=== PATIENT | female | born 1975 | race Caucasian/White ===

== ENCOUNTER 2017-03-07 10:07 | Emergency (ER) | payer SELFPAY ==
[2017-03-07] MEDS ORDERED: NITROSTAT SL ONE (10:48)
--- NOTE | 2017-03-07 11:22 | Emergency Department Report ---
ED Chest Pain HPI - General Chief Complaint: Chest Pain Stated Complaint: CHEST PAIN Time Seen by Provider: 03/07/17 11:21 Source: patient, family Mode of arrival: Ambulatory Limitations: Language Barrier - History of Present Illness Initial Comments: Patient is a 42 referred with his anxiety presenting to the ED with acute chest pressure and paresthesias of her head and face. Patient reports she was just sitting at home when all her symptoms began. Currently patient reports the chest pressure has subsided but she still has paresthesias over her head and face. Upon EMS arrival patient was given 324 mg of aspirin and sublingual nitroglycerin. Patient reports a sublingual nitroglycerin helped with her chest pain. No prior history of cardiac disease or stress test. Otherwise no fevers, chills, headache, dizziness, nausea, vomiting, vision changes, paralysis , weakness, shortness of breath, abdominal pain, difficulty walking, travel, or sick contacts. - Related Data Home Medications Medication Instructions Recorded Confirmed Last Taken No Known Home Medications [No 03/07/17 03/07/17 Unknown Reported Home Medications] Allergies Allergy/AdvReac Type Severity Reaction Status Date / Time No Known Allergies Allergy Unverified 03/07/17 10:35 Heart Score - HEART Score History: Slightly suspicious EKG: Normal Age: < 45 Risk factors: No known risk factors Troponin: < normal limit HEART Score: 0 ED Review of Systems ROS: Stated complaint: CHEST PAIN Other details as noted in HPI Comment: All other systems reviewed and negative ED Past Medical Hx - Past Medical History Previous Medical History?: Yes Additional medical history: Anxiety - Surgical History Past Surgical History?: No - Social History Smoking Status: Never Smoker Substance Use Type: None - Medications Home Medications: Home Medications Medication Instructions Recorded Confirmed Last Taken Type No Known Home Medications [No 03/07/17 03/07/17 Unknown History Reported Home Medications] ED Physical Exam - General Limitations: No Limitations General appearance: alert, in no apparent distress - Head Head exam: Present: atraumatic, normocephalic - Eye Eye exam: Present: normal appearance, PERRL, EOMI. Absent: conjunctival injection, nystagmus Pupils: Present: normal accommodation. Absent: unequal, miosis - ENT ENT exam: Present: normal exam, mucous membranes moist - Neck Neck exam: Present: normal inspection, full ROM. Absent: tenderness, meningismus, lymphadenopathy - Respiratory Respiratory exam: Present: normal lung sounds bilaterally. Absent: respiratory distress, wheezes, rales, rhonchi, stridor - Cardiovascular Cardiovascular Exam: Present: regular rate, normal rhythm. Absent: systolic murmur, diastolic murmur, rubs, gallop - GI/Abdominal GI/Abdominal exam: Present: soft, normal bowel sounds. Absent: distended, tenderness, rebound, rigid - Extremities Exam Extremities exam: Present: normal inspection - Back Exam Back exam: Present: normal inspection - Neurological Exam Neurological exam: Present: alert, oriented X3, CN II-XII intact, normal gait, reflexes normal. Absent: abnormal gait, motor sensory deficit - Psychiatric Psychiatric exam: Present: normal affect, normal mood, anxious - Skin Skin exam: Present: warm, dry, intact, normal color. Absent: rash ED Course Vital Signs 03/07/17 03/07/17 03/07/17 10:18 10:24 10:30 Temperature Pulse Rate Respiratory Rate Blood Pressure 118/72 118/72 121/69 O2 Sat by Pulse 100 100 Oximetry 03/07/17 03/07/17 03/07/17 10:35 10:40 10:50 Temperature 98.3 F Pulse Rate 78 82 Respiratory 20 28 H Rate Blood Pressure 118/74 121/69 109/64 O2 Sat by Pulse 100 100 100 Oximetry 03/07/17 03/07/17 03/07/17 11:00 11:10 11:20 Temperature Pulse Rate 75 79 68 Respiratory 23 23 19 Rate Blood Pressure 111/70 111/70 119/72 O2 Sat by Pulse 100 100 Oximetry 03/07/17 03/07/17 03/07/17 11:30 11:37 11:40 Temperature Pulse Rate 59 L 65 Respiratory 31 H 20 21 Rate Blood Pressure 118/71 118/71 O2 Sat by Pulse 100 100 100 Oximetry 03/07/17 03/07/17 03/07/17 11:50 12:00 12:10 Temperature Pulse Rate 59 L 59 L 56 L Respiratory 26 H 27 H 15 Rate Blood Pressure 113/67 116/64 116/64 O2 Sat by Pulse 100 100 100 Oximetry 03/07/17 03/07/17 03/07/17 12:20 12:30 12:40 Temperature Pulse Rate 64 66 59 L Respiratory 25 H 13 13 Rate Blood Pressure 120/68 117/65 117/65 O2 Sat by Pulse 100 98 98 Oximetry 03/07/17 03/07/17 13:28 13:30 Temperature Pulse Rate 58 L 66 Respiratory 20 17 Rate Blood Pressure 105/66 104/67 O2 Sat by Pulse 100 99 Oximetry - Reevaluation(s) Reevaluation #1: 03/07/17 12:46 Pt re-evaluated, patient reports significant improvement, but still feels numbness along the back of her head and around her tongue Reevaluation #2: 03/07/17 14:55 Pt re-evaluated, patient reports significant improvement. Pt instructed to follow up with PMD this week. YULIANA score - Yuliana Score Age > 65: (0) No Aspirin use within the Past 7 Days: (0) No 3 or more CAD Risk Factors: (0) No 2 or more Angina events in past 24 hrs: (0) No Known CAD with more than 50% Stenosis: (0) No Elevated Cardiac Markers: (0) No ST Deviation Greater than 0.5mm: (0) No YULIANA Score: 0 ED Medical Decision Making - Lab Data Result diagrams: 03/07/17 11:04 03/07/17 11:04 - EKG Data -: EKG Interpreted by Me - EKG Data 03/07/17 11:22 EKG 10:28 Sinus rhythm at 78 bpm, QTC 497 ms, QT is less than half the R to R interval, PVCs, normal axis, no LVH, no ST changes, no STEMI 03/07/17 14:53 EKG 14:40 Sinus Bradycardia at 55 bpm, normal axis, no LVH, PVCs have resolved, no ST changes, no STEMI - Radiology Data CT head: No acute intracranial abnormalities - Medical Decision Making Results discussed with patient and her family at bedside. Given her sx and current clinical status, likely related to her anxiety. Critical care attestation.: If time is entered above; I have spent that time in minutes in the direct care of this critically ill patient, excluding procedure time. ED Disposition Clinical Impression: Chest wall pain, Headache, Paresthesia Disposition: DC-01 TO HOME OR SELFCARE Is pt being admited?: No Condition: Stable Instructions: Chest Pain (ED), Paresthesia (ED), Acute Headache (ED) Additional Instructions: PONGA ANAHY GABRIELLE CON CHERRY DOCTOR PRIMARIO ESTA SEMANA Referrals: PRIMARY CARE, [Primary Care Provider] - 3-5 Days Print Language: UKRAINIAN
[2017-03-07] MEDS ORDERED: XANAX PO ONE (11:28)
[2017-03-07 11:39] LABS: Anion Gap 23 mmol/L; Blood Urea Nitrogen 14 mg/dL (7-17); Calcium 8.6 mg/dL (8.4-10.2); Carbon Dioxide 17 mmol/L (22-30); Chloride 101.7 mmol/L (98-107); Glucose 107 mg/dL (65-100); Potassium 3.3 mmol/L (3.6-5.0); Sodium 138 mmol/L (137-145)
--- NOTE | 2017-03-07 11:55 | XRay Report ---
ROUTINE CHEST, TWO VIEWS: HISTORY: chest pain. The trachea, heart, mediastinal contour, lung stone and bony thorax are unremarkable. IMPRESSION: Unremarkable chest x-ray.
[2017-03-07 11:59] LABS: Basophils % (Auto) 1.3 % (0.0-1.8); Eosinophils % (Auto) 2.2 % (0.0-4.3); Hematocrit 35.3 % (30.3-42.9); Hemoglobin 11.8 gm/dl (10.1-14.3); Mean Corpuscular HGB Conc 34 % (30-34); Mean Corpuscular Hemoglobin 29 pg (28-32); Mean Corpuscular Volume 86 fl (79-97); Platelet Count 212 K/mm3 (140-440); Red Blood Count 4.09 M/mm3 (3.65-5.03); Red Cell Distribution Width 13.6 % (13.2-15.2); White Blood Count 7.4 K/mm3 (4.5-11.0)
[2017-03-07] MEDS ORDERED: NACL 0.9% 1000 ML 1,000 ML IV ONE (12:46)
[2017-03-07] MEDS ORDERED: K-DUR PO ONE (12:46)
--- NOTE | 2017-03-07 13:13 | Cat Scan Report ---
CT HEAD WITHOUT CONTRAST: HISTORY: CVA. Serial contiguous axial images were obtained through the cranium. Intravenous contrast material was not administered. The ventricles are normal in size and appearance. There is no mass effect or midline shift. No areas of abnormally increased or decreased attenuation are seen. No mass lesion is seen. The mastoid air cells and visualized portions of the sinuses are normal. IMPRESSION: Cranial CT scan within normal limits.
[2017-03-07] MEDS ORDERED: MOTRIN PO ONE (13:59)
[2017-03-07 16:35] VITALS: BP 102/63
== END 2017-03-07 16:00 | disposition home or self-care (01) ==
LOC: ED 10:07
DX: R07.89 Other chest pain (principal); R51 Headache; R20.0 Anesthesia of skin
CPT/HCPCS: 36415; 70450; 71020; 80048; 82150; 83690; 83735; 84443; 84484; 85025; 93005; 93010; 96360; 99285; J7030

== ENCOUNTER 2017-03-24 02:28 | Inpatient (IN) | payer SELFPAY ==
[2017-03-24 03:43] LABS: Basophils % (Auto) 1.3 % (0.0-1.8); Hematocrit 36.9 % (30.3-42.9); Hemoglobin 12.3 gm/dl (10.1-14.3); Mean Corpuscular HGB Conc 33 % (30-34); Mean Corpuscular Hemoglobin 29 pg (28-32); Mean Corpuscular Volume 87 fl (79-97); Platelet Count 240 K/mm3 (140-440); Red Blood Count 4.24 M/mm3 (3.65-5.03); Red Cell Distribution Width 13.7 % (13.2-15.2); White Blood Count 7.4 K/mm3 (4.5-11.0)
[2017-03-24 03:55] LABS: Anion Gap 19 mmol/L; Blood Urea Nitrogen 13 mg/dL (7-17); Calcium 9.4 mg/dL (8.4-10.2); Carbon Dioxide 21 mmol/L (22-30); Chloride 98.5 mmol/L (98-107); Glucose 103 mg/dL (65-100); Potassium 3.5 mmol/L (3.6-5.0); Sodium 135 mmol/L (137-145)
[2017-03-24] MEDS ORDERED: NACL 0.9% 1000 ML 1,000 ML IV ONE (06:14)
--- NOTE | 2017-03-24 07:41 | Emergency Department Report ---
ED General Adult HPI - General Chief complaint: Chest Pain Stated complaint: HEAD/NECK SHOULDER PAIN Time Seen by Provider: 03/24/17 07:04 Source: patient, family Mode of arrival: Ambulatory Limitations: Language Barrier - History of Present Illness Initial comments: The patient had an episode resulting in 911 actuation. I will obtain the history in [place] and he remains somewhat confusing. It appears that the patient's pain perhaps started in the left occipital area of her head. It started radiating to her chest and both her shoulders. She described chest pressure which lasted for 4-5 minutes. She stated she had some nausea and some breathing difficulty. Her reports she has been under excessive stress. She may have been breathing rapidly. She had some circumoral oral paresthesias but no focal hemisensory numbness. She states that she had a similar episode 2 weeks ago and was seen here. At that time she reports her symptoms were worse than they are today. She reported some vague dizziness. The patient does not smoke. She's had no hospitalizations or surgeries. She does not take any current medications at all. She states her mother has been told she has a slow heart rate but this has not been reported to the patient herself. She's had no prior cardiac workup. -: Sudden (patient was awake at about 1:30 in the morning when the symptoms began) Location: head, chest, back Radiation: other (as above indicated involved the shoulders as well) Severity scale (0 -10): 0 Quality: other (states the chest pain was a pressure) Consistency: now resolved Improves with: none Associated Symptoms: other (stress) Treatments Prior to Arrival: none - Related Data Home Medications Medication Instructions Recorded Confirmed Last Taken No Known Home Medications [No 03/07/17 03/07/17 Unknown Reported Home Medications] Allergies Allergy/AdvReac Type Severity Reaction Status Date / Time No Known Allergies Allergy Unverified 03/07/17 10:35 ED Review of Systems ROS: Stated complaint: HEAD/NECK SHOULDER PAIN Other details as noted in HPI Constitutional: denies: chills, fever Eyes: denies: eye pain, eye discharge, vision change ENT: denies: ear pain, throat pain Respiratory: shortness of breath. denies: cough, wheezing Cardiovascular: chest pain. denies: palpitations Endocrine: no symptoms reported Gastrointestinal: nausea. denies: abdominal pain, diarrhea Genitourinary: denies: urgency, dysuria, discharge Musculoskeletal: denies: back pain, joint swelling, arthralgia Skin: denies: rash, lesions Neurological: headache. denies: weakness, paresthesias Psychiatric: denies: anxiety, depression Hematological/Lymphatic: denies: easy bleeding, easy bruising ED Past Medical Hx - Past Medical History Previous Medical History?: Yes Additional medical history: Anxiety - Surgical History Past Surgical History?: No - Social History Smoking Status: Never Smoker Substance Use Type: None - Medications Home Medications: Home Medications Medication Instructions Recorded Confirmed Last Taken Type No Known Home Medications [No 03/07/17 03/07/17 Unknown History Reported Home Medications] ED Physical Exam - General General appearance: alert, in no apparent distress - Head Head exam: Present: atraumatic, normocephalic - Eye Eye exam: Present: normal appearance. Absent: scleral icterus - ENT ENT exam: Present: normal exam, mucous membranes moist - Neck Neck exam: Present: normal inspection, other. Absent: tenderness, meningismus - Respiratory Respiratory exam: Present: normal lung sounds bilaterally. Absent: respiratory distress - Cardiovascular Cardiovascular Exam: Present: regular rate, normal rhythm. Absent: systolic murmur, diastolic murmur, rubs, gallop - GI/Abdominal GI/Abdominal exam: Present: soft, normal bowel sounds. Absent: distended, tenderness, guarding, rebound, rigid - Extremities Exam Extremities exam: Present: normal inspection - Back Exam Back exam: Present: normal inspection - Neurological Exam Neurological exam: Present: alert, oriented X3, CN II-XII intact. Absent: motor sensory deficit - Psychiatric Psychiatric exam: Present: normal affect, normal mood - Skin Skin exam: Present: warm, dry, intact, normal color. Absent: rash ED Course Vital Signs 03/24/17 03/24/17 02:41 06:27 Temperature 97.6 F 97.6 F Pulse Rate 53 L 50 L Respiratory 26 H 18 Rate Blood Pressure 119/83 Blood Pressure 120/68 [Right] O2 Sat by Pulse 99 99 Oximetry - Reevaluation(s) Reevaluation #1: This is the second presentation for chest pain for this patient. Her symptom complex was atypical. Was also associated with headache and perhaps panic. Now with standing I think she is now appropriate for a cardiac workup. She is referred to the hospitalist service. She is found to have a persistent resting bradycardia which she did not have on her previous EKG. She also will undergo a CT of her head. 03/24/17 07:45 03/24/17 07:46 ED Medical Decision Making - Lab Data Result diagrams: 03/24/17 03:05 03/24/17 03:05 Laboratory Results - last 24 hr 03/24/17 03/24/17 03/24/17 03:05 03:05 03:05 WBC 7.4 RBC 4.24 Hgb 12.3 Hct 36.9 MCV 87 MCH 29 MCHC 33 RDW 13.7 Plt Count 240 Lymph % (Auto) 37.1 H Treasure % (Auto) 5.6 Eos % (Auto) 5.0 H Baso % (Auto) 1.3 Lymph # 2.7 Treasure # 0.4 Eos # 0.4 Baso # 0.1 Seg Neutrophils % 51.0 Seg Neutrophils # 3.7 Sodium 135 L Potassium 3.5 L Chloride 98.5 Carbon Dioxide 21 L Anion Gap 19 BUN 13 Creatinine 0.4 L Estimated GFR > 60 BUN/Creatinine Ratio 32.50 Glucose 103 H Calcium 9.4 Troponin T < 0.010 HCG, Qual Negative 03/24/17 06:18 WBC RBC Hgb Hct MCV MCH MCHC RDW Plt Count Lymph % (Auto) Treasure % (Auto) Eos % (Auto) Baso % (Auto) Lymph # Treasure # Eos # Baso # Seg Neutrophils % Seg Neutrophils # Sodium Potassium Chloride Carbon Dioxide Anion Gap BUN Creatinine Estimated GFR BUN/Creatinine Ratio Glucose Calcium Troponin T < 0.010 HCG, Qual - EKG Data EKG shows normal: sinus rhythm, axis, intervals, QRS complexes, ST-T waves Rate: bradycardia - EKG Data When compared to previous EKG there are: changes noted (heart rate) Interpretation: no acute changes (serial EKGs are similar) Critical care attestation.: If time is entered above; I have spent that time in minutes in the direct care of this critically ill patient, excluding procedure time. ED Disposition Clinical Impression: Sinus bradycardia Chest pain Qualifiers: Chest pain type: unspecified Qualified Code(s): R07.9 - Chest pain, unspecified Headache Qualifiers: Headache type: unspecified Headache chronicity pattern: acute headache Intractability: not intractable Qualified Code(s): R51 - Headache Disposition: DC-09 OP ADMIT IP TO THIS HOSP Is pt being admited?: Yes Does the pt Need Aspirin: Yes Condition: Stable Instructions: Chest Pain (ED) Referrals: PRIMARY CARE, [Primary Care Provider] - 3-5 Days Time of Disposition: 07:48
--- NOTE | 2017-03-24 07:48 | Cat Scan Report ---
CT HEAD WITHOUT CONTRAST: HISTORY: Headache. Serial contiguous axial images were obtained through the cranium. Intravenous contrast material was not administered. The ventricles are normal in size and appearance. There is no mass effect or midline shift. No areas of abnormally increased or decreased attenuation are seen. No mass lesion is seen. The mastoid air cells and visualized portions of the sinuses are normal. IMPRESSION: Cranial CT scan within normal limits. No change since 03/07/17.
--- NOTE | 2017-03-24 07:49 | XRay Report ---
AP CHEST: HISTORY: chest pain AP view of the chest demonstrates a normal mediastinal and cardiac contour with clear lungs and normal bony and soft tissue structures. IMPRESSION: Unremarkable AP chest. No significant change since 03/07/17.
--- NOTE | 2017-03-24 08:18 | Admit Criteria Form ---
Admission Criteria Documentation: TELEMETRY CARE Telemetry Admission Guidelines (Place 'X' for any and all applicable criteria): Admission to telemetry [A] may be indicated for ANY ONE of the following(1)(2)(3 )(4)(5): [X ]I. Cardiac disease, including ANY ONE of the following (9)(10)(11)(12)( 13): [ ]a) Postacute DC [ ]b) Low-risk patients with ST-segment elevation DC who have undergone successful percutaneous coronary intervention [ ]c) Unstable angina [ ]d) Suspected DC (until it is ruled out) [ ]e) Post cardiac surgery (first 48 to 72 hours unless complications occur) [ X]f) Acute arrhythmias (including significant tachycardia or bradycardia) [B] [ ]g) Firing of an implantable cardioverter defibrillator [C] [ ]h) Suspected pacemaker or implantable cardioverter defibrillator malfunction (10) [ ]i) New administration or adjustment of an antiarrhythmic drug [D ] [ ]j) Child admitted for acute congestive heart failure [ ]j) Long QT syndrome [ ]k) Advanced heart block (eg, second-degree Mobitz type II, third- degree heart block) [ ]l) Acute myocarditis or pericarditis [ ]m) Short-term (ambulatory or inpatient) monitoring after a cardiac procedure as indicated by ANY ONE of the following [E]: [ ]i) Electrophysiologic studies [ ]ii) Percutaneous coronary intervention with stent placement [ ]iii) Pacemaker placement with cardiac conduction defect [ ]iv) Implantable cardiac defibrillator placement [ ]II. Drug overdose or poisoning with substance that causes arrhythmias or QT prolongation (eg, phenothiazines, sympathomimetic agents, cyclic antidepressants, digitalis, antiarrhythmic drugs)(15) [ ]III. Short-term (ambulatory or inpatient) monitoring after therapeutic or diagnostic procedure requiring conscious sedation or anesthesia (eg, endoscopy, elective cardioversion) [ ]IV. Acute cerebrovascular even[F](18) [ ]V. Massive blood transfusion (eg, at least 10 units of packed red blood cells in 24 hours) [ ]. Variceal bleeding after endoscopy, sclerotherapy, or IV vasopressin [ ]VII. Uncorrected electrolyte abnormalities associated with an increased risk of dangerous arrhythmia [G]; examples include [ ]a) Hyperkalemia with attributable ECG changes [ ]b) Potassium greater than 6.5 mmol/L (mEq/L) in a patient without history of chronic renal disease [ ]c) Prolonged QT attributed to hypokalemia, hypomagnesemia, or hypocalcemia [ ]VIII.Unexplained syncope or other neurologic event suspected of being due to arrhythmia due to a finding that increases risk; examples include(19)(20)(21): [ ]a) High-risk ECG findings (eg, bifascicular block, bradycardia, abnormal QT interval, ventricular pre- excitation) [ ]b) History of previous syncope due to arrhythmia [ ]c) Abnormal ventricular function (eg, reduced ejection fraction ) [ ]d) Exertional or supine syncope [ ]e) Concerning syncope characteristics (eg, sudden loss of consciousness without prodrome) [ ]f) Family history of sudden [ ]g) Use of arrhythmogenic medication [ ]h) Suspected cardiac ischemia [ ]i) Known channelopathy (eg, long QT syndrome, Brugada syndrome, or catecholaminergic paroxysmal ventricular tachycardia) [ ]j) Known structural heart disease (eg, hypertrophic cardiomyopathy , severe valvular disease) [ ]k) Palpitations preceding syncope The original [facility] content created by [facility] has been revised. The portions of the content which have been revised are identified through the use of italic text or in bold, and [facility] has neither reviewed nor approved the modified material. All other unmodified content is copyright [facility]. Please see references footnoted in the original [facility] edition 2016 Admission Criteria Met: Yes
[2017-03-24] MEDS ORDERED: MORPHINE IV PRN (08:26)
[2017-03-24] MEDS ORDERED: DULCOLAX PR PRN (08:26)
[2017-03-24] MEDS ORDERED: MILK OF MAGNESIA PO PRN (08:26)
[2017-03-24] MEDS ORDERED: ZOFRAN IV PRN (08:26)
[2017-03-24] MEDS ORDERED: TYLENOL PO PRN (08:26)
[2017-03-24] MEDS ORDERED: NITROSTAT SL ONE (08:29)
--- NOTE | 2017-03-24 08:33 | History and Physical Report ---
<EVANGELINA BRIDGES - Last Filed: 03/24/17 14:53> History of Present Illness Date of examination: 03/24/17 Date of admission: 03/24/2017 Chief complaint: Chest pain History of present illness: Patient is 42 years old [place] female with no past medical history who presented to the ED complaining of chest pain. She states that the pain began today around 1:00 AM . She describes the quality as a chest tightness/pressure pain consisted of a sharp pain that lasted around 30 seconds, followed by a dull pain that would last around 4-5 minutes. The pain was located over her left chest area somewhat near her shoulder. The patient did experience some tingling and numbness is in both arm after the pain ceased. She continued to have several episodes of the pain throughout the morning, so her decided to bring her to the ED. The painful episodes did not increase in intensity or severity during this time. NO alleviating factors, at the ED the patient was given nitroglycerin, which she claims helped alleviate the pain somewhat. She has experienced shortness of breath ,nausea, dizziness and diaphoresisany but she denies vomiting during these episodes of pain. She has had similar chest pain two weeks ago but did not go to hospital. She has been told years ago that her mother has bradycardia but she never had any issue with lower heart rate. Past History Past Medical History: No medical history Past Surgical History: No surgical history Social history: , lives with family Family history: hypertension Medications and Allergies Allergies Allergy/AdvReac Type Severity Reaction Status Date / Time No Known Allergies Allergy Unverified 03/07/17 10:35 Home Medications Medication Instructions Recorded Confirmed Last Taken Type No Known Home Medications [No 03/07/17 03/24/17 Unknown History Reported Home Medications] Active Meds: Active Medications Acetaminophen (Tylenol) 650 mg PO Q4H PRN PRN Reason: Pain MILD(1-3)/Fever >100.5/CARTER Aspirin (Aspirin) 325 mg PO QDAY [facility] Aspirin (Aspirin) 325 mg PO DAILY [facility] Bisacodyl (Dulcolax) 10 mg AR QDAY PRN PRN Reason: Constipation unrelieved by MOM Dextrose/Sodium Chloride (D5/0.45ns) 1,000 mls @ 75 mls/hr IV DIRECT [facility] Magnesium Hydroxide (Milk Of Magnesia) 30 ml PO Q4H PRN PRN Reason: Constipation Morphine Sulfate (Morphine) 2 mg IV Q4H PRN PRN Reason: Pain, Moderate (4-6) Nitroglycerin (Nitrostat) 0.4 mg SL Q5M ONE Stop: 03/24/17 08:30 Ondansetron HCl (Zofran) 4 mg IV Q8H PRN PRN Reason: N/V unrelieved by Reglan Review of Systems Constitutional: no weight loss, no weight gain, no fever Ears, nose, mouth and throat: no ear pain, no ear discharge, no tinnitis, no decreased hearing, no nose pain Cardiovascular: chest pain, lightheadedness, shortness of breath, no orthopnea, no palpitations, no rapid/irregular heart beat, no dyspnea on exertion, no paroxysmal nocturnal dyspnea Respiratory: shortness of breath, no cough, no cough with sputum, no excessive sputum, no hemoptysis, no dyspnea on exertion Gastrointestinal: nausea, no vomiting, no diarrhea Genitourinary Female: no dysmenorrhea, no pelvic pain, no flank pain, no menorrhagia, no dysuria Menstruation: no premenarcheal, no post hysterectomy, no ammenorrhea Rectal: no incontinence, no bleeding Musculoskeletal: arm numbness/tingling (on bilateral), no neck pain, no shooting arm pain Integumentary: no rash, no pruritis, no redness Neurological: numbness, tingling (bilateral arms), no paralysis, no weakness, no parathesias Psychiatric: no anxiety, no memory loss, no change in sleep habits, no sleep disturbances, no insomnia, no hallucinations Endocrine: no heat intolerance, no polyphagia, no excessive thirst Hematologic/Lymphatic: no easy bruising, no easy bleeding Allergic/Immunologic: no urticaria, no allergic rhinitis Exam - Constitutional Vitals: Temp Pulse Resp BP Pulse Ox 98.5 F 46 L 17 109/80 100 03/24/17 08:11 03/24/17 08:11 03/24/17 08:11 03/24/17 08:11 03/24/17 08:11 General appearance: Present: no acute distress - EENT Eyes: Present: PERRL ENT: hearing intact - Neck Neck: Present: supple - Respiratory Respiratory effort: normal Respiratory: bilateral: CTA - Cardiovascular Heart rate: 48 (bradycardia) Heart Sounds: Present: S1 & S2 - Extremities Extremities: no ischemia Peripheral Pulses: within normal limits - Abdominal General gastrointestinal: Present: soft, non-tender Female genitourinary: Present: deferred - Rectal Rectal Exam: deferred - Integumentary Integumentary: Present: clear, warm, dry - Musculoskeletal Musculoskeletal: strength equal bilaterally - Psychiatric Psychiatric: appropriate mood/affect - Neurologic Neurologic: CNII-XII intact - Allied Health Allied health notes reviewed: nursing Results - Labs CBC & Chem 7: 03/24/17 03:05 03/24/17 03:05 Labs: Laboratory Last Values WBC 7.4 K/mm3 (4.5-11.0) 03/24/17 03:05 RBC 4.24 M/mm3 (3.65-5.03) 03/24/17 03:05 Hgb 12.3 gm/dl (10.1-14.3) 03/24/17 03:05 Hct 36.9 % (30.3-42.9) 03/24/17 03:05 MCV 87 fl (79-97) 03/24/17 03:05 MCH 29 pg (28-32) 03/24/17 03:05 MCHC 33 % (30-34) 03/24/17 03:05 RDW 13.7 % (13.2-15.2) 03/24/17 03:05 Plt Count 240 K/mm3 (140-440) 03/24/17 03:05 Lymph % (Auto) 37.1 % (13.4-35.0) H 03/24/17 03:05 [place] % (Auto) 5.6 % (0.0-7.3) 03/24/17 03:05 Eos % (Auto) 5.0 % (0.0-4.3) H 03/24/17 03:05 Baso % (Auto) 1.3 % (0.0-1.8) 03/24/17 03:05 Lymph # 2.7 K/mm3 (1.2-5.4) 03/24/17 03:05 [place] # 0.4 K/mm3 (0.0-0.8) 03/24/17 03:05 Eos # 0.4 K/mm3 (0.0-0.4) 03/24/17 03:05 Baso # 0.1 K/mm3 (0.0-0.1) 03/24/17 03:05 Seg Neutrophils % 51.0 % (40.0-70.0) 03/24/17 03:05 Seg Neutrophils # 3.7 K/mm3 (1.8-7.7) 03/24/17 03:05 Sodium 135 mmol/L (137-145) L 03/24/17 03:05 Potassium 3.5 mmol/L (3.6-5.0) L 03/24/17 03:05 Chloride 98.5 mmol/L (98-107) 03/24/17 03:05 Carbon Dioxide 21 mmol/L (22-30) L 03/24/17 03:05 Anion Gap 19 mmol/L 03/24/17 03:05 BUN 13 mg/dL (7-17) 03/24/17 03:05 Creatinine 0.4 mg/dL (0.7-1.2) L 03/24/17 03:05 Estimated GFR > 60 ml/min 03/24/17 03:05 BUN/Creatinine Ratio 32.50 % 03/24/17 03:05 Glucose 103 mg/dL (65-100) H 03/24/17 03:05 Calcium 9.4 mg/dL (8.4-10.2) 03/24/17 03:05 Troponin T < 0.010 ng/mL (0.00-0.029) 03/24/17 06:18 HCG, Qual Negative (Negative) 03/24/17 03:05 - Imaging and Cardiology Abdominal x-ray: image reviewed (unremarkable AP chest) CT Scan - head: image reviewed (With normal limit) Assessment and Plan Assessment and plan: 1. Chest pain We will admit to to telemetry for continuous cardiac monitoring 12-lead EKG obtained we also get another EKG in order for any changes that have taken. We will do serial cardiac enzymes and follow cardiac enzyme troponin Echocardiogram ordered Stress test ordered Cardiology consultanted 2.Bradycardia Continuous cardiac monitoring IV fluid hydration 3.Hypokalemia Replace with 20MEQ Repeat BMP Closely monitor electrolytes 4.Hyponatremia Started on Iv fluid hydration @ NS that will correct it DVT prophylaxis Lovenox <TON LUGO M - Last Filed: 03/24/17 15:48> History of Present Illness Date of admission: 03/24/17 08:26 Medications and Allergies Active Meds: Active Medications Acetaminophen (Tylenol) 650 mg PO Q4H PRN PRN Reason: Pain MILD(1-3)/Fever >100.5/CARTER Aspirin (Aspirin) 325 mg PO QDAY [facility] Last Admin: 03/24/17 15:20 Dose: Not Given Bisacodyl (Dulcolax) 10 mg AR QDAY PRN PRN Reason: Constipation unrelieved by MOM Enoxaparin Sodium (Lovenox) 40 mg SUB-Q QDAY@2200 [facility] Dextrose/Sodium Chloride (D5/0.45ns) 1,000 mls @ 75 mls/hr IV DIRECT [facility] Magnesium Hydroxide (Milk Of Magnesia) 30 ml PO Q4H PRN PRN Reason: Constipation Morphine Sulfate (Morphine) 2 mg IV Q4H PRN PRN Reason: Pain, Moderate (4-6) Ondansetron HCl (Zofran) 4 mg IV Q8H PRN PRN Reason: N/V unrelieved by Reglan Potassium Chloride (K-Dur) 20 meq PO QDAY [facility] Exam - Constitutional Vitals: Temp Pulse Resp BP Pulse Ox 97.8 F 48 L 18 109/68 100 03/24/17 12:00 03/24/17 12:00 03/24/17 12:00 03/24/17 12:00 03/24/17 08:11 Results - Labs CBC & Chem 7: 03/24/17 03:05 03/24/17 03:05 Labs: Laboratory Last Values WBC 7.4 K/mm3 (4.5-11.0) 03/24/17 03:05 RBC 4.24 M/mm3 (3.65-5.03) 03/24/17 03:05 Hgb 12.3 gm/dl (10.1-14.3) 03/24/17 03:05 Hct 36.9 % (30.3-42.9) 03/24/17 03:05 MCV 87 fl (79-97) 03/24/17 03:05 MCH 29 pg (28-32) 03/24/17 03:05 MCHC 33 % (30-34) 03/24/17 03:05 RDW 13.7 % (13.2-15.2) 03/24/17 03:05 Plt Count 240 K/mm3 (140-440) 03/24/17 03:05 Lymph % (Auto) 37.1 % (13.4-35.0) H 03/24/17 03:05 [place] % (Auto) 5.6 % (0.0-7.3) 03/24/17 03:05 Eos % (Auto) 5.0 % (0.0-4.3) H 03/24/17 03:05 Baso % (Auto) 1.3 % (0.0-1.8) 03/24/17 03:05 Lymph # 2.7 K/mm3 (1.2-5.4) 03/24/17 03:05 [place] # 0.4 K/mm3 (0.0-0.8) 03/24/17 03:05 Eos # 0.4 K/mm3 (0.0-0.4) 03/24/17 03:05 Baso # 0.1 K/mm3 (0.0-0.1) 03/24/17 03:05 Seg Neutrophils % 51.0 % (40.0-70.0) 03/24/17 03:05 Seg Neutrophils # 3.7 K/mm3 (1.8-7.7) 03/24/17 03:05 Sodium 135 mmol/L (137-145) L 03/24/17 03:05 Potassium 3.5 mmol/L (3.6-5.0) L 03/24/17 03:05 Chloride 98.5 mmol/L (98-107) 03/24/17 03:05 Carbon Dioxide 21 mmol/L (22-30) L 03/24/17 03:05 Anion Gap 19 mmol/L 03/24/17 03:05 BUN 13 mg/dL (7-17) 03/24/17 03:05 Creatinine 0.4 mg/dL (0.7-1.2) L 03/24/17 03:05 Estimated GFR > 60 ml/min 03/24/17 03:05 BUN/Creatinine Ratio 32.50 % 03/24/17 03:05 Glucose 103 mg/dL (65-100) H 03/24/17 03:05 Calcium 9.4 mg/dL (8.4-10.2) 03/24/17 03:05 Troponin T < 0.010 ng/mL (0.00-0.029) 03/24/17 14:44 HCG, Qual Negative (Negative) 03/24/17 03:05 Assessment and Plan Assessment and plan: I saw and evaluated the patient. I agree with the findings and the plan of care as documented in the Nurse Practitioner's H/P note. Advance Directives: Yes VTE prophylaxis?: Chemical Plan of care discussed with patient/family: Yes
[2017-03-24] MEDS ORDERED: D5/0.45NS 1,000 ML IV SCH (09:00)
[2017-03-24] MEDS ORDERED: ASPIRIN PO SCH (10:00)
[2017-03-24] MEDS ORDERED: LEXISCAN IV ONE ×2 (10:08)
[2017-03-24] MEDS: ASPIRIN PO SCH (15:20)
--- NOTE | 2017-03-24 16:49 | Event Note ---
Date: 03/24/17 Stress MPI (lexiscan): 1. Negative for ischemia Mykel CALDERON NP / DR. Yong Bauer
[2017-03-24] MEDS ORDERED: LOVENOX SUB-Q SCH (22:00)
[2017-03-25 05:08] LABS: Basophils % (Auto) 1.2 % (0.0-1.8); Eosinophils % (Auto) 5.1 % (0.0-4.3); Hematocrit 34.7 % (30.3-42.9); Hemoglobin 11.3 gm/dl (10.1-14.3); Mean Corpuscular HGB Conc 33 % (30-34); Mean Corpuscular Hemoglobin 29 pg (28-32); Mean Corpuscular Volume 88 fl (79-97); Platelet Count 222 K/mm3 (140-440); Red Blood Count 3.95 M/mm3 (3.65-5.03); Red Cell Distribution Width 13.9 % (13.2-15.2); White Blood Count 7.1 K/mm3 (4.5-11.0)
[2017-03-25 05:20] LABS: Blood Urea Nitrogen 11 mg/dL (7-17); Calcium 8.8 mg/dL (8.4-10.2); Carbon Dioxide 29 mmol/L (22-30); Chloride 99.4 mmol/L (98-107); Glucose 96 mg/dL (65-100); Potassium 3.7 mmol/L (3.6-5.0); Sodium 135 mmol/L (137-145)
[2017-03-25 05:29] LABS: Anion Gap 10 mmol/L
[2017-03-25 06:09] VITALS: BP 101/56
--- NOTE | 2017-03-25 09:07 | Discharge Summary ---
Providers - Providers Date of Admission: 03/24/17 08:26 Date of discharge: 03/25/17 Attending physician: TON LUGO MD Primary care physician: BELEN CHANCE MD Hospitalization Reason for admission: Chest pain Condition: Stable Pertinent studies: Cardiac stress test was negative Hospital course: 42-year-old female was admitted for chest pain. Cardiac enzymes are negative, EKG normal sinus rhythm, cardiac stress test was negative. Patient didn't have any chest pain after admission. Patient is hemodynamically stable with sterile discharge. Patient's medication were reviewed and updated. Patient's questions and concerns were addressed at the bedside. Disposition: DC-01 TO HOME OR SELFCARE Time spent for discharge: 31 minutes - Discharge Diagnoses (1) Chest pain Status: Acute Qualifiers: Chest pain type: unspecified Ischemic chest pain type: I Qualified Code(s ): R07.9 - Chest pain, unspecified (2) Headache Status: Acute Qualifiers: Headache type: unspecified Headache chronicity pattern: acute headache Intractability: not intractable Qualified Code(s): R51 - Headache (3) Sinus bradycardia Status: Acute Core Measure Documentation - Palliative Care Palliative Care/ Comfort Measures: Not Applicable - Core Measures Any of the following diagnoses?: none Exam - Physical Exam Narrative exam: Not in cardiopulmonary distress. The patient appeared well nourished and normally developed. Vital signs as documented. Head exam is unremarkable. No scleral icterus . Neck is without jugular venous distension, thyromegaly, or carotid bruits. Lungs are clear to auscultation. Cardiac exam reveals regular rate and Rhythm. First and second heart sounds normal. No murmurs, rubs or gallops. Abdominal exam reveals normal bowel sounds, no masses, no organomegaly and no aortic enlargement. Extremities are nonedematous and both femoral and pedal pulses are normal. GRAIN CLE[employer]ER: Alert and oriented 3. No focal weakness. - Constitutional Vitals: Temp Pulse Resp BP Pulse Ox 98 F 51 L 21 101/56 99 03/25/17 05:00 03/25/17 05:00 03/25/17 05:00 03/25/17 05:00 03/25/17 05:00 Plan Activity: no restrictions Weight Bearing Status: Full Weight Bearing Diet: regular Follow up with: BELEN CHANCE MD [Primary Care Provider] - 3-5 Days Prescriptions: Acetaminophen [Acetaminophen TAB] 650 mg PO Q4H PRN #12 tablet PRN Reason: Pain MILD(1-3)/Fever >100.5/CARTER ALPRAZolam [Xanax TAB] 1 mg PO BID PRN #10 tablet PRN Reason: Agitation Famotidine [Pepcid] 20 mg PO BID #28 tablet
[2017-03-25] MEDS: ASPIRIN PO SCH (09:37)
[2017-03-25] MEDS ORDERED: K-DUR PO SCH (10:00)
== END 2017-03-25 11:34 | disposition home or self-care (01) | DRG 313 ==
LOC: ED 02:28 → 4A 08:26
PROVIDERS: ADMIT Internal Medicine; ATTEND Internal Medicine
DX: R07.89 Other chest pain (principal); E87.1 Hypo-osmolality and hyponatremia; R00.1 Bradycardia, unspecified; R51 Headache; F41.9 Anxiety disorder, unspecified; Z82.49 Family history of ischemic heart disease and other diseases of the circulatory system; E87.6 Hypokalemia
CPT/HCPCS: 36415; 70450; 71010; 78452; 80048; 84484; 84703; 85025; 93005; 93010; 93017; 93306; 96361; 96374; 99285; A9502; J1650; J2785; J7030

== ENCOUNTER 2021-06-17 17:21 | Emergency (ER) | payer SELFPAY ==
--- NOTE | 2021-06-17 21:41 | Emergency Department Report ---
ED Female HPI - General Chief complaint: Urogenital-Female Stated complaint: INFECTED VAGINA Source: patient Mode of arrival: Ambulatory Limitations: No Limitations - History of Present Illness Initial comments: Patient is a A0 46-year-old female with no past medical history presents to the ED with complaint of acute onset persistent suprapubic pressure, urinary frequency and urgency, dysuria, vaginal irritation and low back pain for the last 5 days, worse in the last 2 days. Patient states that in the last 12 hours, her symptoms of worsened. Patient denies fever, chills, nausea, vomiting, chest pain, shortness of breath, vaginal bleeding, vaginal discharge, diarrhea, sore throat, headache or dizziness and syncope. MD Complaint: dysuria, pelvic pain (Suprapubic pressure), other (Urinary urgency and frequency and low back pain) -: Sudden, days(s) (5) Location: suprapubic Radiation: suprapubic, other (Low back) Severity: moderate Severity scale (0 -10): 5 Quality: dull, aching Consistency: constant Improves with: none Worsens with: urination Are you Now?: No Associated Symptoms: denies other symptoms, abdominal pain (Suprapubic pressure). denies: vaginal discharge, vaginal bleeding - Related Data Sexually active: Yes : 4 Para: 4 Previous Rx's Medication Instructions Recorded Last Taken Type ALPRAZolam [Xanax TAB] 1 mg PO BID PRN #10 tablet 03/25/17 Unknown Rx Acetaminophen [Acetaminophen TAB] 650 mg PO Q4H PRN #12 tablet 03/25/17 Unknown Rx Famotidine [Pepcid] 20 mg PO BID #28 tablet 03/25/17 Unknown Rx Fluconazole [Diflucan TAB] 200 mg PO QDAY #3 tablet 06/17/21 Unknown Rx Ibuprofen [Motrin] 600 mg PO Q8H PRN #24 tablet 06/17/21 Unknown Rx Ondansetron [Zofran Odt] 4 mg PO Q6HR PRN #15 tab.rapdis 06/17/21 Unknown Rx Sulfamethoxazole/Trimethoprim 1 each PO Q12H #20 tablet 06/17/21 Unknown Rx [Bactrim DS TAB] Allergies Allergy/AdvReac Type Severity Reaction Status Date / Time No Known Allergies Allergy Unverified 03/07/17 10:35 ED Review of Systems ROS: Stated complaint: INFECTED VAGINA Other details as noted in HPI Constitutional: denies: chills, fever Eyes: denies: eye pain, eye discharge, vision change ENT: denies: ear pain, throat pain Respiratory: denies: cough, shortness of breath, wheezing Cardiovascular: denies: chest pain, palpitations Endocrine: no symptoms reported Gastrointestinal: abdominal pain (Suprapubic pressure). denies: nausea, vomiting, diarrhea Genitourinary: urgency, dysuria, frequency. denies: discharge Musculoskeletal: back pain (Low back pain). denies: joint swelling, arthralgia Skin: denies: rash, lesions Neurological: denies: headache, weakness, paresthesias Psychiatric: denies: anxiety, depression Hematological/Lymphatic: denies: easy bleeding, easy bruising ED Past Medical Hx - Past Medical History Previous Medical History?: Yes Hx Congestive Heart Failure: No Hx Diabetes: No Hx Asthma: No Hx COPD: No Hx HIV: No Additional medical history: Anxiety - Surgical History Past Surgical History?: No - Social History Smoking Status: Never Smoker - Medications Home Medications: Home Medications Medication Instructions Recorded Confirmed Last Taken Type ALPRAZolam [Xanax TAB] 1 mg PO BID PRN #10 tablet 03/25/17 Unknown Rx Acetaminophen [Acetaminophen TAB] 650 mg PO Q4H PRN #12 tablet 03/25/17 Unknown Rx Famotidine [Pepcid] 20 mg PO BID #28 tablet 03/25/17 Unknown Rx Fluconazole [Diflucan TAB] 200 mg PO QDAY #3 tablet 06/17/21 Unknown Rx Ibuprofen [Motrin] 600 mg PO Q8H PRN #24 tablet 06/17/21 Unknown Rx Ondansetron [Zofran Odt] 4 mg PO Q6HR PRN #15 tab.rapdis 06/17/21 Unknown Rx Sulfamethoxazole/Trimethoprim 1 each PO Q12H #20 tablet 06/17/21 Unknown Rx [Bactrim DS TAB] ED Physical Exam - General Limitations: No Limitations General appearance: alert, in no apparent distress - Head Head exam: Present: atraumatic, normocephalic, normal inspection - Eye Eye exam: Present: normal appearance, PERRL, EOMI Pupils: Present: normal accommodation - ENT ENT exam: Present: normal exam, normal orophraynx, mucous membranes moist, TM's normal bilaterally, normal external ear exam - Neck Neck exam: Present: normal inspection, full ROM - Respiratory Respiratory exam: Present: normal lung sounds bilaterally. Absent: respiratory distress, wheezes, rales, rhonchi, chest wall tenderness, accessory muscle use, decreased breath sounds, prolonged expiratory - Cardiovascular Cardiovascular Exam: Present: regular rate, normal rhythm, normal heart sounds. Absent: systolic murmur, diastolic murmur, rubs, gallop - GI/Abdominal GI/Abdominal exam: Present: soft, normal bowel sounds. Absent: tenderness, guarding, rebound, hyperactive bowel sounds, organomegaly - Bi-manual exam: Present: other (Pelvic exam deferred at this time) - Extremities Exam Extremities exam: Present: normal inspection, full ROM, normal capillary refill - Back Exam Back exam: Present: normal inspection, full ROM. Absent: tenderness, CVA tenderness (R), CVA tenderness (L), muscle spasm, paraspinal tenderness, vertebral tenderness - Neurological Exam Neurological exam: Present: alert, oriented X3, CN II-XII intact, normal gait, reflexes normal - Psychiatric Psychiatric exam: Present: normal affect, normal mood - Skin Skin exam: Present: warm, dry, intact, normal color. Absent: rash ED Course Vital Signs 06/17/21 17:27 Temperature 98 F Pulse Rate 69 Respiratory 16 Rate Blood Pressure 105/61 [Left] O2 Sat by Pulse 96 Oximetry ED Medical Decision Making - Medical Decision Making This is a A0 46-year-old female with no past medical history presents to the ED with complaint of acute onset persistent suprapubic pressure, urinary frequency and urgency, dysuria, vaginal irritation and low back pain for the last 5 days, worse in the last 2 days. Patient states that in the last 12 hours, her symptoms of worsened. In the ED, patient is alert and oriented x3 and is not in any distress. Urinalysis is unremarkable but the patient is symptomatic. Patient she'll be discharged home on medications, including em pirical antibiotics for suspected UTI and yeast infection. Patient was discharged home and advised to follow-up with her primary care physician in 7 to 10 days for reevaluation or return to the ED immediately if symptoms get worse. - Differential Diagnosis UTI; bacterial vaginosis; Joceline vaginitis; Critical care attestation.: If time is entered above; I have spent that time in minutes in the direct care of this critically ill patient, excluding procedure time. ED Disposition Clinical Impression: Dysuria, Acute urinary tract infection, Vaginitis due to Joceline Disposition: HOME / SELF CARE / HOMELESS Is pt being admited?: No Does the pt Need Aspirin: No Condition: Stable Instructions: Urinary Tract Infection, Adult, [id number], Vaginitis, [id number] Additional Instructions: Take medication with food, drink plenty of fluids and follow-up with your primary care physician in 7 to 10 days for reevaluation. Return to the ED immediately if symptoms get worse. Prescriptions: Sulfamethoxazole/Trimethoprim [Bactrim DS TAB] 1 each PO Q12H #20 tablet Fluconazole [Diflucan TAB] 200 mg PO QDAY #3 tablet Ibuprofen [Motrin] 600 mg PO Q8H PRN #24 tablet PRN Reason: Pain Ondansetron [Zofran Odt] 4 mg PO Q6HR PRN #15 tab.rapdis PRN Reason: Nausea Referrals: [facility] [Provider Group] - 7-10 days Time of Disposition: 22:59 Print Language: [place] CITIZ[place]
[2021-06-17 22:30] LABS: Bacteria,Urine 1+ /HPF (Negative); Bilirubin,Urine NEG (Negative); Blood,Urine NEG (Negative); Color,Urine Yellow (Yellow); Mucus,Urine FEW /HPF; Protein,Urine <15 mg/dL mg/dL (Negative); Urobilinogen,Urine < 2.0 mg/dL (<2.0)
[2021-06-17 22:42] LABS: HCG Qualitative,Urine Negative (Negative)
[2021-06-18 00:30] VITALS: BP 110/60
== END 2021-06-18 00:30 | disposition home or self-care (01) ==
LOC: ED 17:21
DX: N39.0 Urinary tract infection, site not specified (principal); B37.3 Candidiasis of vulva and vagina; F41.9 Anxiety disorder, unspecified; Z98.890 Other specified postprocedural states; Z79.899 Other long term (current) drug therapy
CPT/HCPCS: 81001; 81025; 99283